=== PATIENT | female | born 2000 | race Caucasian/White ===

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

== ENCOUNTER → 2019-01-12 17:54 | Outpatient (CLI) | payer BC, MEDICAID, SELFPAY ==
[2019-01-12 09:18] VITALS: BMI 25.7
== END ==
PROVIDERS: Family Provider Family Medicine; PCP Family Medicine; Referring Provider Obstetrics & Gynecology; Visit Provider Obstetrics & Gynecology
DX: Z34.93 Encounter for supervision of normal pregnancy, unspecified, third trimester (principal)
CPT/HCPCS: 87081

== ENCOUNTER 2019-02-04 11:45 | Inpatient (IN) | payer BC, MEDICAID, SELFPAY ==
[2019-01-31 09:21] VITALS: BMI 25.7
[2019-02-04 10:03] VITALS: BMI 28.6
[2019-02-04] MEDS: Lactated Ringers 1,000 ML 50 ML IV ×3 (12:15→20:40)
[2019-02-04 12:40] LABS: Absolute Lymphocyte Count 1.56 X10^3/ul (0.83-4.51); Absolute Neutrophil Count 8.4 X10^3/uL (2.0-7.7); Basophil# 0.01 X10^3/uL; Basophil% 0.1 % (0-1); Eosinophil# 0.04 X10^3/uL; Eosinophils% 0.4 % (0-5); Hematocrit 37.2 % (37-47); Lymphocyte # 1.56 X10^3/ul (4.0); Lymphocyte % 14.3 % (19-41); Mean Corp Hgb Conc 34.9 g/gl (32-36); Mean Corpuscular Hgb 30.5 pg (27.0-32.0); Mean Corpuscular Volume 87.3 fL (81-99); Mean Platelet Vol. 10.1 fl (6.2-12.0); Monocyte# 0.85 X10^3/uL; Monocyte% 7.8 % (0-10); Neutrophil % 76.9 % (47-70); POSITIVE COUNT NO; POSITIVE DIFFERENTIAL NO; POSITIVE MORPHOLOGY NO; Platelet Count 218 K/mm3 (150-450); RBC Distribution Width CV 13.2 % (11.6-14.6); RBC Distribution Width SD 42.2 fl (35.1-43.9); Red Blood Count 4.26 M/mm3 (4.2-5.4); White Blood Count 10.9 K/mm3 (4.4-11.0)
[2019-02-04] MEDS: fentaNYL-bupivacaine (epidural) 100 ML BAG EPIDURAL ×2 (15:10→20:48)
--- NOTE | 2019-02-04 15:17 | PCM.HP.OB ---
- Problem List (1) Active labor at term Status: Acute (2) Anemia affecting Status: Acute Qualifiers: Comment: iron - resolved (3) Pyelonephritis affecting Status: Acute Qualifiers: Comment: keflex, prophylaxis until delivery (4) Status: Acute Qualifiers: Comment: nl sequential screen. carrier screening declined. anatomy scan reviewed. pyelectasis resolved (5) Supervision of normal first Status: Acute Qualifiers: Comment: PRR SILVANA 02/02/19 girl Bernardo Clay History Date of Admission: 10/08/18 Final ISLVANA: 02/02/19 Gestational age: 40 Weeks and 2 Days History of this : This is a 18 year-old, at 40 weeks gestational age presents IAL 4 cm dilated. She has had a complicated by pyelonephritis and has been on Keflex prophylaxis during the . She denies any vaginal bleeding or loss of fluid and admits good movement. She has had regular contractions for the last couple of hours. Allergies No Known Allergies Allergy (Verified 01/31/19 08:56) Home Medications: Home Medications vitamin,calcium,btnsfprj-ncsx-grweq acid tablet 1 tab PO DAILY 07/05/18 Cephalexin [Keflex] 250 mg PO Q12 02/04/19 Ferrous Sulfate [Iron] 325 mg PO DAILY 02/04/19 Smoking Status: Never smoker Alcohol: None Number of Fetus(es): 1 Heart Tracin moderate variability reactive no decelerations category 1 tracing [place]: Every 3 to 5 minutes History Past Pregnancies: Past Pregnancies Delivery Date Name GA/Weeks Outcome Route Weight Infant Gender Labor Length Anesthesia Delivery Location Provider FOB Labs: Mom[facility] Labs & Results 02/04/19 02/04/19 12:15 12:15 WBC 10.9 RBC 4.26 Hgb 13.0 Hct 37.2 MCV 87.3 MCH 30.5 MCHC 34.9 RDW 13.2 RDW Differential 42.2 Plt Count 218 MPV 10.1 Immature Gran % (Auto) 0.500 Neut % (Auto) 76.9 H Lymph % (Auto) 14.3 L [place] % (Auto) 7.8 Eos % (Auto) 0.4 Baso % (Auto) 0.1 Absolute Neuts (auto) 8.4 H Absolute Lymphs (auto) 1.56 Total Counted Not Reportable Blood Type O POSITIVE Antibody Screen NEGATIVE Course Did the patient receive Yes care? Labs Blood Type: O RH: POSITIVE RPR/VDRL/Syphilis Nonreactive Rubella status Immune HbSAg Negative Date Done: 07/05/18 Chlamydia Negative Gonorrhea Negative HIV/AIDS Non-Reactive Group B Strep: Negative Current Obstetrical History Gestational Diabetes No Incompetent Cervix No Infertility No IUGR No Macrosomia No Hypertension/Pre-eclampsia No Placenta Previa/Abruption No PTL/PROM No Uterine anomaly No Oligohydramnios No Polyhydramnios No Multiple gestation No Past Medical History Asthma No Diabetes No Hypertension No Heart disease No Mitral valve prolapse No Neurologic/Seizure disorder/ No Migraines Kidney disease No Liver disease No Varicosities No Clotting disorders/Hx of DVT No Thyroid Dysfunction No Other medical diseases No Psychiatric disorders No Major trauma No Abnormal PAP smear No Sleep apnea No Mammogram in the last 2 years No Medications Taken During Dose/Freq.: [antiemetic] 4mg q6hrs PRN Reason for taking medication [ nausea in first trimester antiemetic] Social History Marital Status: SINGLE Alleged father Obed Hx Smoking No Smoking Status Never smoker Expected Infant Delivery Method: Spontaneous Vaginal Review of Systems Constitutional: Denies: Fever, Malaise Eyes: Denies: Blurred vision, Vision Change HEENT: Denies: Head Aches, Visual Changes Cardiovascular: Denies: Chest Pain, Palpitations Respiratory: Denies: Cough, Shortness of Breath, Wheezing Gastrointestinal: Denies: Abdominal Pain, Diarrhea, Nausea, Vomiting Genitourinary: Denies: Dysuria, Hematuria Musculoskeletal: Denies: Joint Pain, Muscle pain Skin: Denies: Lesions, Rash Neurological: Denies: Blurred vision, Focal weakness, Headaches Psychiatric: Denies: Anxiety, Depression Endocrine: Denies: Heat/ Cold Intolerance Hematologic/ Lymphatic: Denies: Easy Bruising, Easy Bleeding Physical Exam General: Alert, Cooperative, No apparent distress HEENT: Atraumatic, Normocephalic. Negative for: Thyromegaly, Lymphadenopathy Cardiovascular: Regular rate Lungs: Normal air movement Abdomen: Soft, Non Tender, Gravid Neurological: Deep Tendon Reflexes 2+/4 and Symmetrical, Neuro grossly intact. 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 Negative for: Vulvar lesions Estimated gestational size: Appropriate for gestational size Presentation: Cephalic Cervix Dilation (cm): 4 Station: -1 Effacement (%): 90 Assessment/Plan All Active Problems (Last Reviewed 01/31/19 @ 08:56 by Fide Jones) Active labor at term (Acute) Anemia affecting (Acute) Pyelonephritis affecting (Acute) (Acute) Supervision of normal first (Acute) Abnormal finding on screen (Resolved) Pyelectasis (Resolved) Pyelectasis of fetus on ultrasound (Resolved) This is a 18 year-old, at 40 weeks gestational age presents IAL Patient presents IAL, plan expectant management for , pitocin/AROM PRN if needed. Pain management: Plans epidural. GBS negative. Management of any complications: None I have reviewed the [facility] and made any clinically relevant updates.
--- NOTE | 2019-02-04 15:20 | HP.PCM_ITS ---
- Problem List (1) Active labor at term Status: Acute (2) Anemia affecting Status: Acute Qualifiers: Comment: iron - resolved (3) Pyelonephritis affecting Status: Acute Qualifiers: Comment: keflex, prophylaxis until delivery (4) Status: Acute Qualifiers: Comment: nl sequential screen. carrier screening declined. anatomy scan reviewed. pyelectasis resolved (5) Supervision of normal first Status: Acute Qualifiers: Comment: PRR SILVANA 02/02/19 girl Bernardo Clay History Date of Admission: 10/08/18 Final SILVANA: 02/02/19 Gestational age: 40 Weeks and 2 Days History of this : This is a 18 year-old, at 40 weeks gestational age presents IAL 4 cm dilated. She has had a complicated by pyelonephritis and has been on Keflex prophylaxis during the . She denies any vaginal bleeding or loss of fluid and admits good movement. She has had regular contractions for the last couple of hours. Allergies No Known Allergies Allergy (Verified 01/31/19 08:56) Home Medications: Home Medications vitamin,calcium,bjssuqfv-rzzd-rvcep acid tablet 1 tab PO DAILY 07/05/18 Cephalexin [Keflex] 250 mg PO Q12 02/04/19 Ferrous Sulfate [Iron] 325 mg PO DAILY 02/04/19 Smoking Status: Never smoker Alcohol: None Number of Fetus(es): 1 Heart Tracin moderate variability reactive no decelerations category 1 tracing [place]: Every 3 to 5 minutes History Past Pregnancies: Past Pregnancies Delivery Date Name GA/Weeks Outcome Route Weight Infant Gender Labor Length Anesthesia Delivery Location Provider FOB Labs: Mom[facility] Labs & Results 02/04/19 02/04/19 12:15 12:15 WBC 10.9 RBC 4.26 Hgb 13.0 Hct 37.2 MCV 87.3 MCH 30.5 MCHC 34.9 RDW 13.2 RDW Differential 42.2 Plt Count 218 MPV 10.1 Immature Gran % (Auto) 0.500 Neut % (Auto) 76.9 H Lymph % (Auto) 14.3 L [place] % (Auto) 7.8 Eos % (Auto) 0.4 Baso % (Auto) 0.1 Absolute Neuts (auto) 8.4 H Absolute Lymphs (auto) 1.56 Total Counted Not Reportable Blood Type O POSITIVE Antibody Screen NEGATIVE Course Did the patient receive Yes care? Labs Blood Type: O RH: POSITIVE RPR/VDRL/Syphilis Nonreactive Rubella status Immune HbSAg Negative Date Done: 07/05/18 Chlamydia Negative Gonorrhea Negative HIV/AIDS Non-Reactive Group B Strep: Negative Current Obstetrical History Gestational Diabetes No Incompetent Cervix No Infertility No IUGR No Macrosomia No Hypertension/Pre-eclampsia No Placenta Previa/Abruption No PTL/PROM No Uterine anomaly No Oligohydramnios No Polyhydramnios No Multiple gestation No Past Medical History Asthma No Diabetes No Hypertension No Heart disease No Mitral valve prolapse No Neurologic/Seizure disorder/ No Migraines Kidney disease No Liver disease No Varicosities No Clotting disorders/Hx of DVT No Thyroid Dysfunction No Other medical diseases No Psychiatric disorders No Major trauma No Abnormal PAP smear No Sleep apnea No Mammogram in the last 2 years No Medications Taken During Dose/Freq.: [antiemetic] 4mg q6hrs PRN Reason for taking medication [ nausea in first trimester antiemetic] Social History Marital Status: SINGLE Alleged father Obed Hx Smoking No Smoking Status Never smoker Expected Infant Delivery Method: Spontaneous Vaginal Review of Systems Constitutional: Denies: Fever, Malaise Eyes: Denies: Blurred vision, Vision Change HEENT: Denies: Head Aches, Visual Changes Cardiovascular: Denies: Chest Pain, Palpitations Respiratory: Denies: Cough, Shortness of Breath, Wheezing Gastrointestinal: Denies: Abdominal Pain, Diarrhea, Nausea, Vomiting Genitourinary: Denies: Dysuria, Hematuria Musculoskeletal: Denies: Joint Pain, Muscle pain Skin: Denies: Lesions, Rash Neurological: Denies: Blurred vision, Focal weakness, Headaches Psychiatric: Denies: Anxiety, Depression Endocrine: Denies: Heat/ Cold Intolerance Hematologic/ Lymphatic: Denies: Easy Bruising, Easy Bleeding Physical Exam General: Alert, Cooperative, No apparent distress HEENT: Atraumatic, Normocephalic. Negative for: Thyromegaly, Lymphadenopathy Cardiovascular: Regular rate Lungs: Normal air movement Abdomen: Soft, Non Tender, Gravid Neurological: Deep Tendon Reflexes 2+/4 and Symmetrical, Neuro grossly intact. 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 Negative for: Vulvar lesions Estimated gestational size: Appropriate for gestational size Presentation: Cephalic Cervix Dilation (cm): 4 Station: -1 Effacement (%): 90 Assessment/Plan All Active Problems (Last Reviewed 01/31/19 @ 08:56 by Fide Jones) Active labor at term (Acute) Anemia affecting (Acute) Pyelonephritis affecting (Acute) (Acute) Supervision of normal first (Acute) Abnormal finding on screen (Resolved) Pyelectasis (Resolved) Pyelectasis of fetus on ultrasound (Resolved) This is a 18 year-old, at 40 weeks gestational age presents IAL Patient presents IAL, plan expectant management for , pitocin/AROM PRN if needed. Pain management: Plans epidural. GBS negative. Management of any complications: None I have reviewed the [facility] and made any clinically relevant updates.
[2019-02-04] MEDS: Oxytocin 30 units/NS 500 ml 30 UNITS/500 ML IV.SOLN IV (23:15)
[2019-02-05] VITALS (9 sets, daily range): BP systolic 103–117; BP diastolic 55–79; PULSE 112–140; RESP 16–18; TEMP 36.2–37.2; O2SAT 97–99
[2019-02-05] MEDS: Lactated Ringers 1,000 ML 50 ML IV (01:37)
[2019-02-05] MEDS: Oxytocin 30 units/NS 500 ml 30 UNITS/500 ML IV.SOLN 334 UNITS IV (02:11)
[2019-02-05] MEDS: Oxytocin 30 units/NS 500 ml 30 UNITS/500 ML IV.SOLN 167 UNITS IV (02:41)
--- NOTE | 2019-02-05 02:52 | PCM.OPRPT ---
Problem List (1) Active labor at term Status: Acute (2) Anemia affecting Status: Acute Qualifiers: Comment: iron - resolved (3) Pyelonephritis affecting Status: Acute Qualifiers: Comment: keflex, prophylaxis until delivery (4) Status: Acute Qualifiers: Comment: nl sequential screen. carrier screening declined. anatomy scan reviewed. pyelectasis resolved (5) Supervision of normal first Status: Acute Qualifiers: Comment: PRR SILVANA 02/02/19 girl Bernardo BF Obed Vaginal Delivery Maternal Presentation: Active Labor 18 yo P0 @ 40w2d presents in active labor Method of Induction: Pitocin Amniotic Membrane Rupture Type: Spontaneous at home Amniotic Fluid Description: Clear Final SILVANA: 02/02/19 Gestational age: 40 Weeks and 3 Days Date of Procedure: 02/05/19 Pre-Operative Diagnosis: ial Post-Operative Diagnosis: same Surgery/ Procedure Performed: Spontaneous Vaginal Delivery Type of Anesthesia: Epidural Description of Procedure: Patient began pushing and delivered the head in the [BREEZY] presentation. The head was delivered atraumatically . The anterior and posterior shoulders delivered without complication followed by the rest of the and the infant was placed on the maternal abdomen. Delayed cord clamping was employed for approximately 60 seconds. Cord was clamped and cut and gentle traction was applied to the cord and the placenta delivered spontaneously immediately following however it was noted that remaining part of the placenta and difficulty releasing retained products were suspected. A bedside curettage was performed with a banjo curette and manual exploration was performed. Additional membrane and placental tissue was removed and bedside ultrasound was performed to confirm complete removal of products.. The perineum and vagina were inspected and [noted to have no laceration]. EBL was 500 cc. Patient had a hypotensive episode post delivery that recovered with a normal blood pressure and heart rate at 85 afterwards but a stat CBC was sent.. Patient and infant tolerated delivery well. Presentation: BREEZY Placental Delivery Description: Spontaneous Placenta Disposition: [facility] Cord Vessel Description: 3 Vessels Cord Entanglement: None Estimated Blood Loss: 500 A gender: Female Episiotomy Description: None Laceration: None Medications given after delivery: IV Pitocin Complications: - - retained placenta
[2019-02-05 03:27] LABS: Hematocrit 33.1 % (37-47); Hemoglobin 11.3 g/dl (12.0-15.0); Mean Corp Hgb Conc 34.1 g/gl (32-36); Mean Corpuscular Volume 87.8 fL (81-99); Mean Platelet Vol. 10.3 fl (6.2-12.0); Platelet Count 177 K/mm3 (150-450); RBC Distribution Width CV 13.1 % (11.6-14.6); RBC Distribution Width SD 42.1 fl (35.1-43.9); Red Blood Count 3.77 M/mm3 (4.2-5.4); White Blood Count 13.9 K/mm3 (4.4-11.0)
[2019-02-05 03:29] LABS: Scan Indicated on CBC? Y/N NO
[2019-02-05] MEDS: Cefazolin 2 GM in 0.9% Normal Saline 100 ML IV (04:05)
[2019-02-05] MEDS: Lactated Ringers 1,000 ML 999 ML IV (17:10)
[2019-02-05 17:26] LABS: Absolute Lymphocyte Count 1.53 X10^3/ul (0.83-4.51); Absolute Neutrophil Count 19.1 X10^3/uL (2.0-7.7); Basophil# 0.01 X10^3/uL; Eosinophil# 0.01 X10^3/uL; Hemoglobin 9.7 g/dl (12.0-15.0); Lymphocyte # 1.53 X10^3/ul (4.0); Lymphocyte % 6.9 % (19-41); Mean Corp Hgb Conc 34.6 g/gl (32-36); Mean Corpuscular Hgb 30.2 pg (27.0-32.0); Mean Corpuscular Volume 87.2 fL (81-99); Mean Platelet Vol. 9.8 fl (6.2-12.0); Monocyte# 1.67 X10^3/uL; Monocyte% 7.5 % (0-10); Neutrophil # 19.05 X10^3/uL (2.7-7.7); Neutrophil % 85.3 % (47-70); Platelet Count 163 K/mm3 (150-450); RBC Distribution Width CV 13.1 % (11.6-14.6); RBC Distribution Width SD 42.2 fl (35.1-43.9); Red Blood Count 3.21 M/mm3 (4.2-5.4); White Blood Count 22.3 K/mm3 (4.4-11.0)
[2019-02-05 17:31] LABS: Differential Indicated SCAN CRITERIA MET; POSITIVE COUNT NO; POSITIVE DIFFERENTIAL YES; POSITIVE MORPHOLOGY NO
[2019-02-05 18:02] LABS: Platelet Estimate ADEQUATE (ADEQ); Red Cell Morphology NORM C+C NORMAL (NORM C&C)
--- NOTE | 2019-02-05 18:16 | EKG12_ITS ---
Test Reason : Blood Pressure : / mmHG Vent. Rate : 123 BPM Atrial Rate : 123 BPM P-R Int : 154 ms QRS Dur : 072 ms QT Int : 290 ms P-R-T Axes : 039 -39 047 degrees QTc Int : 415 ms Sinus tachycardia Left axis deviation Low Voltage QRS Septal infarct , age undetermined Abnormal ECG Confirmed by CARLOS MOYER, SARAHY ([id number]), purchase request editor NATHANIEL AGUIRRE ([id number]) on 02/07/2019 11:44:29 AM Referred By: Confirmed By:SARAHY GONZALEZ MD
[2019-02-05] MEDS: Lactated Ringers 500 ML 999 ML IV (18:21)
[2019-02-05 19:45] LABS: Hemoglobin 8.8 g/dl (12.0-15.0)
[2019-02-06 00:45] VITALS: BP 101/54; PULSE 106; RESP 18; TEMP 37; O2SAT 98
[2019-02-06 03:49] VITALS: BP 111/70; PULSE 109; RESP 18; TEMP 36.4; O2SAT 98
[2019-02-06 06:32] LABS: Absolute Lymphocyte Count 2.25 X10^3/ul (0.83-4.51); Absolute Neutrophil Count 14.3 X10^3/uL (2.0-7.7); Basophil# 0.01 X10^3/uL; Basophil% 0.1 % (0-1); Eosinophil# 0.09 X10^3/uL; Eosinophils% 0.5 % (0-5); Hematocrit 24.7 % (37-47); Hemoglobin 8.4 g/dl (12.0-15.0); Lymphocyte # 2.25 X10^3/ul (4.0); Lymphocyte % 12.4 % (19-41); Mean Corpuscular Volume 88.2 fL (81-99); Mean Platelet Vol. 9.9 fl (6.2-12.0); Monocyte# 1.38 X10^3/uL; Monocyte% 7.6 % (0-10); Neutrophil # 14.31 X10^3/uL (2.7-7.7); Platelet Count 158 K/mm3 (150-450); RBC Distribution Width CV 13.3 % (11.6-14.6); RBC Distribution Width SD 43.1 fl (35.1-43.9); White Blood Count 18.1 K/mm3 (4.4-11.0)
[2019-02-06 06:37] LABS: POSITIVE COUNT NO; POSITIVE DIFFERENTIAL NO; POSITIVE MORPHOLOGY NO
--- NOTE | 2019-02-06 07:36 | PN.OBGYN_ITS ---
Patient Problems: Active and Suspected Problems (Last Reviewed 01/31/19 @ 08:56 by Fide Jones) Active labor at term (Acute) Subjective: doing well no complaints pain controlled no CP SOB-note mild tachycardia, will monitor this am and discuss with Dr. Amado. No N V ambulating well tolerating po lochia moderate, going well - Physical Exam General: Alert, Oriented x3 Cardiovascular: Tachycardic - 0700 100bpm Abdomen: Soft, Non Tender, - - FF below U Vital Signs Temp Pulse Resp BP Pulse Ox 97.6 F L 109 H 18 111/70 98 02/06/19 03:49 02/06/19 03:49 02/06/19 03:49 02/06/19 03:49 02/06/19 03:49 Oxygen Delivery Method Room Air Weight: 161 lb 9.581 oz Body Mass Index (BMI) 28.6 Intake and Output for Last 24 Hours 02/04/19 02/05/19 02/06/19 23:59 23:59 23:59 Intake Total 3253 / 3253 Output Total 1600 / 1600 1200 / 1200 Balance 1653 / 1653 -1200 / -1200 Laboratory Tests Past 24 Hrs 02/05/19 02/05/19 02/06/19 17:08 19:30 06:10 WBC 22.3 H 18.1 H RBC 3.21 L 2.80 L Hgb 9.7 L 8.8 L 8.4 L Hct 28.0 L 24.7 L MCV 87.2 88.2 MCH 30.2 30.0 MCHC 34.6 34.0 RDW 13.1 13.3 RDW Differential 42.2 43.1 Plt Count 163 158 MPV 9.8 9.9 Immature Gran % (Auto) 0.300 0.400 Neut % (Auto) 85.3 H 79.0 H Lymph % (Auto) 6.9 L 12.4 L Humphreys % (Auto) 7.5 7.6 Eos % (Auto) 0.0 0.5 Baso % (Auto) 0.0 0.1 Absolute Neuts (auto) 19.1 H 14.3 H Absolute Lymphs (auto) 1.53 2.25 Total Counted Not Reportable Not Reportable Differential Comment Diff Path Review May foll Platelet Estimate ADEQUATE RBC Morphology NORM C+C Medical Necessity - Tobacco Use Smoking Status: Never smoker Assessment/Plan All Active Problems (Last Reviewed 01/31/19 @ 08:56 by Fide Jones) Active labor at term (Acute) Anemia affecting (Acute) Pyelonephritis affecting (Acute) (Acute) Supervision of normal first (Acute) Abnormal finding on screen (Resolved) Pyelectasis (Resolved) Pyelectasis of fetus on ultrasound (Resolved) s/p PPD # 1 1. routine post delivery care 2. breast feeding- support given 3. rh positive 4. rubella immune 5. If tachycardia resolves today will discharge home this pm 6. Consult Dr. Amado re: tachycardia.
[2019-02-06 08:45] VITALS: BP 105/53; PULSE 94; RESP 16; TEMP 36.9; O2SAT 97
[2019-02-06 11:28] LABS: Pathologist Review Reviewed
--- NOTE | 2019-02-06 13:58 | CASEMGMT ---
Social Work Assessment Labor and Delivery Unit Date of Referral: 02/06/2019 Time of Referral: 1225 Referred By: Verbal notification by Chante Zaidi RN; Dr. Amado. Date of Intervention: 02/06/2019 Time of Intervention: 1340 Reason for Referral: 18 year old mother, resources. History obtained from: Mother of baby (MOB) Danii Morgan, medical records, and father of baby (FOB) Obed Vasquez also present for part of conversation. Household composition: MOB and FOB have been living with FOB's sister, sister's boyfriend, and their son. MOB and FOB report home situation is safe and adequate. Patient's parent/guardian status: MOB is 18, has been in a 5 year relationship with FOB. Privately MOB denies any safety concerns or history of violence with FOB. baby girl, Bernardo Vasquez, is the first child for both. Medical History: MOB is G1, P0 to 1 after delivering Bernardo. care started at 9 weeks gestation. Baby born at 40 weeks and weighed 8 pounds 1 ounce at . Apgars 8 and 9 at 1 and 5 minutes of life. Educational Status: MOB just graduated with an Associates degree in [employer] and [employer] from [employer]. No issues with reading, writing, or learning comprehension. Financial Status: MOB works at [employer] but will be looking for a new job in business arena. FOB works at [employer] in [facility]. Supplies: Report to have needed baby supplies including a safe sleep space, car seat, clothes, diapers, wipes, and breast pump. Childcare/Caregiver(s): MOB and then FOB to help. Transportation: No issues. Programs/Agencies Involved: Medicaid through S. MOB and FOB educated to WIC, [facility] and [employer]. Behavioral Health Issues: Mental Health History: MOB denies any personal history of emotional health issues. Substance Use History: MOB denies any past or present issues with substances. Does not smoke tobacco. Family History: None reported or discussed. Drug Screens: none noted in care record or at time of delivery. Family/Social Stressors: [place] but MOB reports both parents are excited for the baby. No other stressors identified at this time. Support Systems: MOB reports FOB, FOB's parents, grandparents, MOB's parents and grandparents are all local and supportive. MOB reports that FOB's sister has an also, and that both women have been helpful to each other throughout their pregnancies. Depression/Shaken Baby/Safe Sleeping : Educated to shaken baby preventions, safe sleeping, and mood and anxiety disorders/risk factors, and importance of seeking out help and support should symptoms arise. ASSESSMENT: Met with MOB and FOB together and then alone with MOB. Both MOB and FOB pleasant and engaging in conversation. MOB held good eye contact. Affect constricted, though smiled at appropriate times, and affect brightened when talking bout the baby. MOB reports to have needed supplies for baby, to have adequate support and FOB is taking the remainder of the week off of work to help out. MOB denies any mood or anxiety issues currently or in the . MOB reports understanding of importance to talk with health care provider should symptoms arise. MOB and FOB deny any needs or concerns with home going. MOB accepting of information on [facility] but did not want a referral. PLAN: MOB and baby to home. [facility] resource packet provided, depression packet with online resources for support, and [facility] information given. No other services requested or indicated. -DAVID Goodman, RESEARCH PROGRAM COORDINATOR
[2019-02-06 14:20] VITALS: BP 111/71; PULSE 104; RESP 16; TEMP 36.9; O2SAT 99
[2019-02-06 15:16] VITALS: PULSE 96
--- NOTE | 2019-02-06 15:37 | DCINST_ITS ---
Additional Instructions: If you experience any of the following, contact your healthcare provider. * Bleeding that soaks a pad every hour for 2 hours * Fever 100.4 or higher * Unrelieved incision or abdominal pain * Swelling, redness, discharge or bleeding from your incision or episiotomy site * Your incision begins to separate * Problems urinating (including inability to urinate or burning while urinating). * Visual changes * Severe headache * Flu-like symptoms * Pain or redness in one of both of your breasts * Pain, warmth, tenderness or swelling in your legs, especially the calf area * Frequent nausea and vomiting * Symptoms of depression or anxiety If you experience any of the following, call 911 or go to the nearest Emergency Room. * Chest pain * Problems breathing * Seizure activity * Partial or complete paralysis of a body part, slurred speech, weakness or drooping of the face, or a sudden inability to walk or hold your balance Allergies/Adverse Reactions: Allergies No Known Allergies Allergy (Verified 01/31/19 08:56) Medications to take at Discharge vitamin,calcium,exokqmem-bcup-nvvmq acid tablet 1 tab PO DAILY 07/05/18 Cephalexin [Keflex] 250 mg PO Q12 02/04/19 Ferrous Sulfate [Iron] 325 mg PO DAILY 02/04/19 Primary Care Physician: Wilmer Redmond MD [Primary Care Provider] - Test Results: Test results from this visit will be discussed in further detail at your follow- up appointment, if applicable.
--- NOTE | 2019-02-06 15:37 | PCM.DCVAG ---
Additional Instructions: If you experience any of the following, contact your healthcare provider. Bleeding that soaks a pad every hour for 2 hours Fever 100.4 or higher Unrelieved incision or abdominal pain Swelling, redness, discharge or bleeding from your incision or episiotomy site Your incision begins to separate Problems urinating (including inability to urinate or burning while urinating). Visual changes Severe headache Flu-like symptoms Pain or redness in one of both of your breasts Pain, warmth, tenderness or swelling in your legs, especially the calf area Frequent nausea and vomiting Symptoms of depression or anxiety If you experience any of the following, call 911 or go to the nearest Emergency Room. Chest pain Problems breathing Seizure activity Partial or complete paralysis of a body part, slurred speech, weakness or drooping of the face, or a sudden inability to walk or hold your balance Allergies/Adverse Reactions: Allergies No Known Allergies Allergy (Verified 01/31/19 08:56) Medications to take at Discharge vitamin,calcium,sjdhzhir-ovmf-llbub acid tablet 1 tab PO DAILY 07/05/18 Cephalexin [Keflex] 250 mg PO Q12 02/04/19 Ferrous Sulfate [Iron] 325 mg PO DAILY 02/04/19 Primary Care Physician: Wilmer Redmond MD [Primary Care Provider] - Test Results: Test results from this visit will be discussed in further detail at your follow-up appointment, if applicable.
--- NOTE | 2019-02-12 17:11 | NURSING ---
Follow up phone made, Mother discontinued due to bleeding nipples and property technician recommended formula until they heal but Mom decided to stay with formula. Crystal MARQUES
== END 2019-02-06 16:10 | disposition home or self-care (01) | DRG 806 ==
LOC: WP 16:41 → WPOUT 02-05 11:00
PROVIDERS: Admitting Provider Obstetrics & Gynecology; Family Provider Family Medicine; PCP Family Medicine; Visit Provider Obstetrics & Gynecology
DX: O99.02 Anemia complicating childbirth (principal); O23.03 Infections of kidney in pregnancy, third trimester; Z37.0 Single live birth; D64.9 Anemia, unspecified; Z3A.40 40 weeks gestation of pregnancy; O42.02 Full-term premature rupture of membranes, onset of labor within 24 hours of rupture; O73.0 Retained placenta without hemorrhage; O99.89 Other specified diseases and conditions complicating pregnancy, childbirth and the puerperium; R00.0 Tachycardia, unspecified
CPT/HCPCS: 59025; 59050; 85018; 85025; 85027; 86850; 86900; 93005; 99218; J7120; G0378

== ENCOUNTER 2019-05-07 19:46 | Emergency (ER) | payer BC, MEDICAID, SELFPAY ==
[2019-03-26 11:05] VITALS: BMI 28.6
[2019-05-07 19:47] VITALS: BP 135/80; PULSE 73; RESP 16; TEMP 36.7; O2SAT 100; BMI 22.4
--- NOTE | 2019-05-07 19:56 | EKG12_ITS ---
Test Reason : Blood Pressure : / mmHG Vent. Rate : 066 BPM Atrial Rate : 066 BPM P-R Int : 144 ms QRS Dur : 084 ms QT Int : 404 ms P-R-T Axes : 011 -39 005 degrees QTc Int : 423 ms Normal sinus rhythm Left axis deviation Abnormal ECG Confirmed by BETH MOYER, DIANE ([id number]), order editor NATHANIEL AGUIRRE ([id number]) on 05/09/2019 12:49:33 PM Referred By: Confirmed By:DIANE CAMPOS MD
--- NOTE | 2019-05-07 20:50 | RAD_ITS ---
STUDY: X-RAY CHEST REASON FOR EXAM: Female, 18 years old. Palpitation TECHNIQUE: AP COMPARISON: None. FINDINGS: The lungs are clear and expanded. There is no demonstrated pleural abnormality. Normal size heart. Normal mediastinum and lexi. Normal visualized pulmonary arteries. Normal visualized aortic arch and descending thoracic aorta. Normal visualized thoracic spine. Normal visualized ribs, clavicles, and shoulders. There is no demonstrated abnormality of the visualized soft tissue structures of the upper abdomen. RAD/Chest 1 View (Portable) IMPRESSION: Normal x-ray examination of the chest. Electronically Signed: Joe Armendariz MD at 21:17 EDT , Service support ,
[2019-05-07] MEDS: 0.9% Normal Saline 1,000 ML 1000 ML IV (21:10)
[2019-05-07 21:27] LABS: Absolute Neutrophil Count 3.8 X10^3/uL (2.0-7.7); Basophil# 0.07 X10^3/uL; Basophil% 1.1 % (0-1); Eosinophil# 0.14 X10^3/uL; Eosinophils% 2.3 % (0-5); Hematocrit 36.8 % (37-47); Hemoglobin 11.8 g/dL (12.0-15.0); Lymphocyte % 24.1 % (19-41); Mean Corp Hgb Conc 32.1 g/dL (32-36); Mean Corpuscular Hgb 25.5 pg (27.0-32.0); Mean Corpuscular Volume 79.7 fL (81-99); Mean Platelet Vol. 10.4 fl (6.2-12.0); Monocyte# 0.67 X10^3/uL; Monocyte% 10.8 % (0-10); NRBC Flagged by Analyzer 0 % (0-5); Neutrophil # 3.83 X10^3/uL (2.7-7.7); Neutrophil % 61.5 % (47-70); Platelet Count 281 K/mm3 (150-450); RBC Distribution Width CV 14.9 % (11.6-14.6); RBC Distribution Width SD 42.9 fl (35.1-43.9); Red Blood Count 4.62 M/mm3 (4.2-5.4); White Blood Count 6.2 K/mm3 (4.4-11.0)
[2019-05-07 21:28] LABS: Internal QC Validated? YES +Cl - CLEAR BKGD; Pregnancy, Serum, hCG Quali. NEGATIVE Negative
[2019-05-07 21:43] LABS: ALB/GLOB Ratio 1.2 RATIO (0.9-2.4); AST(SGOT) 12 U/L (15-37); Alanine Aminotransfer ALT/SGPT 19 U/L (13-56); Albumin, Serum 3.9 g/dL (3.2-5.0); Alkaline Phosphatase 61 U/L (45-117); Anion Gap 9 (5-15); BUN 11 mg/dL (7-18); BUN/Creat Ratio 13.7 RATIO (10-20); Chloride 110 mmol/L (98-107); EST Glomerular Filtration Rate 97 mL/min (>60); Est Glom Filt Rate - Afr Amer 117 mL/min (>60); Estimated Creatinine Clearance 93.56 ml/min; Globulin 3.3 g/dL (2.2-4.2); Glucose 92 mg/dL (74-106); Potassium 3.6 mmol/L (3.5-5.1); Protein, Total 7.2 g/dL (6.4-8.2); Sodium Level 141 mmol/L (136-145); Thyroid Stim Hormone (TSH) 0.78 uIU/mL (0.358-3.74)
--- NOTE | 2019-05-07 21:52 | ED.DCSUM_ITS ---
- ER Visit Summary Date of Service: 05/07/19 Chief Complaint: Palpitations History of Present Illness: The patient is a [address] Nevarez off. She reports she has palpitations that began yesterday. There are intermittent episodes that last minutes of time. However she is having them every couple minutes. She describes these as a rate or fast heartbeats. She denies any associated chest pain or shortness of breath. States that she typically does not drink caffeine. She did have a Mountain Dew yesterday. Patient does reports that she has had chills and cold sweats. She denies any fever. No sore throat or cough. No abdominal pain, vomiting, or GI diarrhea. No dysuria frequency. She is actually on her menstrual period now. Physical Examination: Vitals: Stable. Afebrile. General: Well-nourished and well-developed. Head: Normocephalic atraumatic. Neck: Supple, no lymphadenopathy. No JVD. Nontender. Cardiovascular: Regular rate and rhythm. No murmurs. Respiratory: No respiratory distress. Clear to auscultation bilaterally. Abdominal: Soft, nontender, nondistended, normal bowel sounds. No guarding, rebound, or peritoneal signs. Back: Nontender. Extremities: Nontender, no edema. Skin: Normal color, no rash. Neurologic: Alert and oriented ?3. Cranial nerves II through XII are intact. Normal strength and sensation. Psych: Normal affect. Test Results: EKG is sinus at 66 and unchanged from January. Troponin is negative. test negative. TSH is normal. LFTs show an AST of 12. Chem-7 shows a chloride 110. CBC shows an H&H of 11.8 and 36.8. Monocytes of 11. Clinical Impression(s) from Imaging Studies Chest X-Ray 05/07/19 20:50 IMPRESSION: Normal x-ray examination of the chest. Electronically Signed: Joe Armendariz MD at 21:17 EDT , Service support , Emergency Department Course and Treatment: Patient was given a liter of normal saline. She was sinus in the 60s without ectopy while here. Treatment Plan: Patient be discharged instructions follow-up with primary care physician in 3 to 5 days for another exam. Return to the emergency department for any worsening symptoms. Disposition: To home in improved and stable condition. Impression: 1. Palpitations. This note was generated with Mesol[employer] dictation software. It may contain incorrect words, spelling, and punctuation that were not noted in review of the chart prior to signing ED Disposition - Plan for ED Patient: Disposition: Home or Assisted Living Instructions: Palpitations Referrals: Wilmer Redmond MD [Primary Care Provider] - 3-5 Days
[2019-05-07 22:05] VITALS: BP 117/89; PULSE 55; RESP 16; O2SAT 98
== END 2019-05-07 22:07 | disposition home or self-care (01) ==
LOC: ED 20:59
PROVIDERS: Emergency Provider Emergency Medicine; Family Provider Family Medicine; PCP Family Medicine
DX: R00.2 Palpitations (principal)
CPT/HCPCS: 71045; 80053; 84443; 84484; 84703; 85025; 93005; 96360; 99285; J7030; A4216

== ENCOUNTER 2019-07-20 07:58 | Emergency (ER) | payer BC, MEDICAID, SELFPAY ==
[2019-07-06 13:53] VITALS: BMI 22.4
[2019-07-20 07:59] VITALS: BP 121/85; PULSE 116; RESP 16; TEMP 36.6; O2SAT 100; BMI 22.1
--- NOTE | 2019-07-20 08:18 | EKG12_ITS ---
Test Reason : COMPLAINT Blood Pressure : / mmHG Vent. Rate : 091 BPM Atrial Rate : 091 BPM P-R Int : 162 ms QRS Dur : 084 ms QT Int : 322 ms P-R-T Axes : 080 -68 033 degrees QTc Int : 396 ms Normal sinus rhythm Left axis deviation Pulmonary disease pattern Abnormal ECG Confirmed by BETH MOYER, DIANE ([id number]), hoist operator NATHANIEL AGUIRRE ([id number]) on 07/23/2019 9:36:06 AM Referred By: KEVIN Confirmed By:DIANE CAMPOS MD
--- NOTE | 2019-07-20 08:28 | ED.DCSUM_ITS ---
History of Present Illness Chief Complaint: Complaint Narrative: Patient presenting for evaluation due to concerns for a UTI and a syncopal episode. Patient states that over the course of about the last week she has been dealing with dysuria. Patient states that its been associated with burning when she urinates, that has slowly progressed to some low back pain. Patient states she has been developing some general illness now. She got up this morning, and was getting ready for the day and suffered a syncopal episode. She denies that there was any sort of prodrome associated with this. No chest pain palpitations shortness of breath. Patient's states that she passed out and did not have any sort of seizure-like activity, and immediately came to without any sort of postictal episode. She does have a history of having some passing out episodes in the past. She denies fevers. She does endorse some mild nausea associated with this. No history of DVT or PE or any risk factors of such. Review of systems otherwise negative. Past Medical History - Allergies and Home Meds Allergies/Adverse Reactions: Allergies No Known Allergies Allergy (Verified 07/20/19 08:01) Primary Care Physician: Wilmer Redmond MD [Primary Care Provider] - Past Medical History: None Smoking Status: Former smoker Review of Systems General: Reports: Chills Eyes: Denies: Visual changes - bilaterally, Diplopia ENT: Denies: Rhinorrhea, Sore throat Cardiovascular: Reports: Palpitations, - - Syncope Respiratory: Denies: Dyspnea, Cough, Dyspnea on exertion Gastrointestinal: Denies: Abdominal pain, Nausea, Vomiting, Diarrhea, Melena, Hematochezia Genitourinary: Reports: Dysuria Musculoskeletal: Denies: Back pain, Extremity Pain Skin: Denies: Rash, Wounds Neurological: Denies: Headache, Weakness, Numbness Physical Exam Vital Signs/Narrative: Vital Signs Temp Pulse Resp BP Pulse Ox 07/20/19 07:59 98 F 116 H 16 121/85 H 100 Inital Vital Signs reviewed: Yes General: Well nourished, Well developed, No Acute Distress Head: Normocephalic, Atraumatic Eyes: Perrl, EOMI ENT: Moist mucous membranes, No rhinorrhea Neck: Supple, Nontender Cardiovascular: Regular rhythm, No murmurs, Tachycardia Respiratory: No distress, CTA bilaterally, Chest nontender Abdomen: Soft, Nondistended, Normal bowel sounds, Tender - Suprapubic, - - Minimal CVA tenderness to percussion Back: Nontender, Normal Inspection Extremities: Nontender, No edema Skin: Normal color, No rash Neurological: Alert, Oriented x3, Cranial nerves II-XII grossly intact, Normal Strength, Normal Sensation Psychological: Normal affect, Normal Mood Diagnostic/Tx/Re-eval - EKG Initial EKG Interpretation: - - Sinus rhythm at [address] segments normal T waves. Right axis deviation is noted. No evidence of acute ischemia or a rrhythmia. - Medical Decision Making Patient presented secondary to flank pain and a syncopal episode. Patient was evaluated with an EKG. This showed no signs of acute ischemia or arrhythmia. CBC chemistry troponin and lactic acid were found to be grossly unremarkable. Patient's urinalysis did show significant amount of infection. Patient likely at this point has an element of pyelonephritis. Urine was sent for culture. Patient was given fluids and had improvement of her heart rate. At this point I feel the patient is appropriate for outpatient treatment of pyelonephritis. She is negative per the [place] syncope rules, I do not believe that observation admission is required. Patient will be placed on a course of Bactrim. She was given signs and symptoms which to return. ED Disposition - Plan for ED Patient: Disposition: Home or Assisted Living Diagnosis: Pyelonephritis, Syncope Instructions: PYELONEPHRITIS, Female (Adult) Prescriptions: Smz/Tmp Ds [Bactrim Ds] 1 tab PO BID #28 tab Prescription Printed Referrals: Wilmer Redmond MD [Primary Care Provider] - 3-5 Days
[2019-07-20] MEDS: 0.9% Normal Saline 1,000 ML 1000 ML IV (08:40)
[2019-07-20 08:54] LABS: Color, Urine Yellow (Yellow); Glucose, Dipstick Normal (Normal); Internal QC Validated? YES +Cl - CLEAR BKGD; Ketone-Dipstick Negative (Negative); Leukocyte Esterase-Dipstick 500 /ul (Negative); Nitrite-Dipstick Negative (Negative); Occult Blood-Urine 50 /ul (Negative); Protein-Dipstick 100 mg/dl (Negative); Specific Gravity, Urine 1.015 (1.002-1.030); Urine Bilirubin Dipstick Negative (Negative); Urine Clarity Cloudy (Clear); Urine Urobilinogen Normal (Normal)
[2019-07-20 08:57] LABS: Pregnancy, Urine Negative Negative
[2019-07-20 08:59] LABS: Absolute Neutrophil Count 4.8 X10^3/uL (2.0-7.7); Basophil# 0.01 X10^3/uL; Basophil% 0.2 % (0-1); Eosinophil# 0.02 X10^3/uL; Eosinophils% 0.3 % (0-5); Hematocrit 39.5 % (37-47); Hemoglobin 13.1 g/dL (12.0-15.0); Lymphocyte % 11.4 % (19-41); Mean Corp Hgb Conc 33.2 g/dL (32-36); Mean Corpuscular Hgb 27.5 pg (27.0-32.0); Mean Corpuscular Volume 82.8 fL (81-99); Mean Platelet Vol. 9.4 fl (6.2-12.0); Monocyte# 0.56 X10^3/uL; Monocyte% 9.1 % (0-10); NRBC Flagged by Analyzer 0 % (0-5); Neutrophil # 4.82 X10^3/uL (2.7-7.7); Neutrophil % 78.5 % (47-70); Platelet Count 260 K/mm3 (150-450); RBC Distribution Width CV 14.4 % (11.6-14.6); RBC Distribution Width SD 43.3 fl (35.1-43.9); Red Blood Count 4.77 M/mm3 (4.2-5.4); White Blood Count 6.1 K/mm3 (4.4-11.0)
[2019-07-20 09:00] VITALS: BP 105/66; PULSE 84; RESP 19; TEMP 36.7; O2SAT 100
[2019-07-20 09:01] LABS: White Blood Cells >100 SEEN /hpf (0-5)
[2019-07-20 09:02] LABS: Bacteria 2+ /hpf (None Seen); Mucous, Urine 1+ /hpf (<or=2+); Red Blood Cells-Urine 0-5 SEEN /hpf (0-5); Squamous Epithelial Cells - UA 0-5 SEEN /hpf (5-10)
[2019-07-20 09:16] LABS: Anion Gap 7 (5-15); BUN 11 mg/dL (7-18); BUN/Creat Ratio 12.8 RATIO (10-20); Calcium,Total 8.8 mg/dL (8.5-10.1); Chloride 105 mmol/L (98-107); Creatinine, Serum 0.86 mg/dL (0.55-1.02); EST Glomerular Filtration Rate 89 mL/min (>60); Est Glom Filt Rate - Afr Amer 108 mL/min (>60); Estimated Creatinine Clearance 86.32 ml/min; Glucose 124 mg/dL (74-106); Potassium 3.4 mmol/L (3.5-5.1); Sodium Level 140 mmol/L (136-145)
[2019-07-20 09:33] LABS: Lactic Acid 1.5 mmol/L (0.4-2.0)
== END 2019-07-20 10:45 | disposition home or self-care (01) ==
PROVIDERS: Emergency Provider Emergency Medicine; Family Provider Family Medicine; PCP Family Medicine
DX: N12 Tubulo-interstitial nephritis, not specified as acute or chronic (principal); R55 Syncope and collapse; Z87.891 Personal history of nicotine dependence
CPT/HCPCS: 80048; 81001; 81025; 83605; 84484; 85025; 87077; 87086; 87088; 93005; 96360; 99284; J7030; A4216

== ENCOUNTER → 2021-01-12 08:52 | Outpatient (CLI) | payer BC, MEDICAID, SELFPAY ==
[2020-03-27 08:07] VITALS: BMI 22.1
[2021-01-12 11:20] LABS: hCG Titer Quant., Serum 5637 mIU/mL (1-3)
== END ==
PROVIDERS: PCP Family Medicine; Referring Provider Obstetrics & Gynecology; Visit Provider Obstetrics & Gynecology
DX: N92.6 Irregular menstruation, unspecified (principal)
CPT/HCPCS: 36415; 84702

== ENCOUNTER → 2021-01-14 07:51 | Outpatient (CLI) | payer BC, MEDICAID, SELFPAY ==
[2020-03-27 08:07] VITALS: BMI 22.1
[2021-01-14 08:56] LABS: hCG Titer Quant., Serum 10447 mIU/mL (1-3)
== END ==
PROVIDERS: PCP Family Medicine; Referring Provider Obstetrics & Gynecology; Visit Provider Obstetrics & Gynecology
DX: N92.6 Irregular menstruation, unspecified (principal)
CPT/HCPCS: 36415; 84702

== ENCOUNTER → 2021-02-16 10:09 | Outpatient (CLI) | payer BC, MEDICAID, SELFPAY ==
[2021-02-16 09:27] VITALS: BMI 22.1
[2021-02-16 10:36] LABS: Absolute Lymphocyte Count 1.74 X10^3/uL (0.83-4.51); Absolute Neutrophil Count 4.9 X10^3/uL (2.0-7.7); Basophil# 0.05 X10^3/uL; Basophil% 0.7 % (0-1); Eosinophil# 0.05 X10^3/uL; Eosinophils% 0.7 % (0-5); Hematocrit 36.5 % (37-47); Hemoglobin 12.7 g/dL (12.0-15.0); Lymphocyte # 1.74 X10^3/ul (0.83-4.51); Mean Corp Hgb Conc 34.8 g/dL (32-36); Mean Corpuscular Hgb 29.7 pg (27.0-32.0); Mean Corpuscular Volume 85.3 fL (81-99); Mean Platelet Vol. 9.1 fl (6.2-12.0); Monocyte# 0.47 X10^3/uL; Monocyte% 6.5 % (0-10); NRBC Flagged by Analyzer 0 % (0-5); Neutrophil # 4.88 X10^3/uL (2.7-7.7); Neutrophil % 67.4 % (47-70); Platelet Count 334 K/mm3 (150-450); RBC Distribution Width CV 11.6 % (11.6-14.6); RBC Distribution Width SD 35.6 fl (35.1-43.9); Red Blood Count 4.28 M/mm3 (4.2-5.4); White Blood Count 7.2 K/mm3 (4.4-11.0)
[2021-02-16 11:29] LABS: HIV - WCH Non-Reactive (Nonreactive); Hepatitis B Surface Antigen Non-Reactive (Nonreactive); Hepatitis C Antibody Non-Reactive (Nonreactive); Rubella IgG Reactive (Nonreactive); Syphilis Antibodies Non-reactive
[2021-02-16 11:32] LABS: NATERA MAILED SPECIMEN
[2021-02-16 13:50] LABS: Amphetamine Urine VISTA NEGATIVE (<1000 ng/mL); Barbiturate Urine VISTA NEGATIVE (< 200 ng/mL); Benzodiazepine Urine VISTA NEGATIVE (< 200 ng/mL); Cocaine Urine VISTA NEGATIVE (< 300 ng/mL); Ecstacy Urine VISTA NEGATIVE (< 500 ng/mL); Methadone Urine VISTA NEGATIVE (< 300 ng/mL); PCP Urine VISTA NEGATIVE (< 25 ng/mL); THC Urine VISTA NEGATIVE (< 50 ng/mL); Vista UDS pH Range 7
[2021-02-18 04:38] LABS: Chlamydia By Nucleic Acid AMP Negative (Negative)
[2021-02-18 11:49] LABS: Gonococcus By Nucleic Acid AMP Negative (Negative)
[2021-02-18 18:32] LABS: HPV Reflexed? NOT INDICATED
== END ==
PROVIDERS: PCP Family Medicine; Referring Provider Obstetrics & Gynecology; Visit Provider Obstetrics & Gynecology
DX: Z34.90 Encounter for supervision of normal pregnancy, unspecified, unspecified trimester (principal)
CPT/HCPCS: 36415; 80307; 85025; 86703; 86762; 86780; 86803; 86850; 86900; 86901; 87086; 87340; 87491; 87591; 88175; G0145

== ENCOUNTER → 2021-05-05 15:57 | Outpatient (CLI) | payer BC, MEDICAID, SELFPAY ==
--- NOTE | 2021-05-05 16:05 | US_ITS ---
STUDY: SECOND AND THIRD TRIMESTER OBSTETRICAL ULTRASOUND REASON FOR EXAM: Female, 20 years old anatomy LMP: Unknown. TECHNIQUE: Transabdominal and Transvaginal TECHNICAL QUALITY: Adequate. PRIOR ULTRASOUND: None. FINDINGS: There is a single intrauterine fetus. The fetus is in a variable presentation. There is demonstrated cardiac activity with a heart rate of 144 bpm. There is a normal amniotic fluid volume. The largest amniotic fluid pocket measures 6.8 cm. The The placenta is anterior with a marginal previa, placenta terminating approximately 3 mm away from the os. There are Grade 0 placental changes. The cervix measures 4.75 cm in length. The cervix is closed. The adnexal regions are not visualized. BIOMETRY: BPD: 5.24 cm: 21 weeks, 6 days HC: 19.59 cm: 21 weeks, 5 days AC: 17.54 cm: 22 weeks, 3 days FL: 3.46 cm: 20 weeks, 6 days CI: 76.93 FL/BPD: 66.09 FL/HC: 17.68 FL/AC: 19.75 HC/AC: 1.12 age by current US: 21 weeks, 3 days. SILVANA by current US: 09/12/2021. Estimated weight: 455 grams, +/- 68 grams, 11.2 %. age by prior US: No prior ultrasound. Age by LMP: 22 weeks, 5 days. SILVANA by LMP: 09/03/2021. ANATOMY: Gender: Male Cranium: Normal lateral ventricles. Normal choroid plexus. Normal cerebellum. Normal cisterna magna. Normal face, nose and lips. Chest: Normal 4-chamber heart. Abdomen/Pelvis: Normal diaphragm. Normal stomach. Normal abdominal wall. Normal cord insertion. Normal 3 vessel cord. Normal kidneys. Normal bladder. Spine: Normal cervical spine. Normal thoracic spine. Normal lumbar spine. Normal sacrum. Extremities: Normal bilateral upper extremities. Normal bilateral lower extremities. US/OB Anatomy Scan IMPRESSION: Single intrauterine with ultrasound age of 21 weeks and 3 days and estimated date of delivery of 09/12/2021. Variable presentation. Marginal placenta previa, placental terminating 3.2 mm away from the internal os. Normal amniotic fluid. Normal cardiac activity. No distinct anomaly. Electronically Signed: Loida Barnes MD at 0:50 EDT , Service support ,
== END ==
PROVIDERS: PCP Family Medicine; Referring Provider Obstetrics & Gynecology; Visit Provider Obstetrics & Gynecology
DX: Z34.80 Encounter for supervision of other normal pregnancy, unspecified trimester (principal)
CPT/HCPCS: 76805; 76817

== ENCOUNTER → 2021-06-11 16:33 | Outpatient (CLI) | payer BC, MEDICAID, SELFPAY ==
--- NOTE | 2021-06-11 16:34 | US_ITS ---
STUDY: SECOND AND THIRD TRIMESTER OBSTETRICAL ULTRASOUND - LIMITED REASON FOR EXAM: Female, 21 years old marginal placenta previa follow-up PRIOR ULTRASOUND: May 15, 2021 TECHNIQUE: Transabdominal TECHNICAL QUALITY: Adequate. FINDINGS: There is a single intrauterine fetus. The fetus is in a breech and variable presentation. There is demonstrated cardiac activity with a heart rate of 140 bpm. There is a normal amniotic fluid volume. The largest amniotic fluid pocket measures 6.84 cm. The amniotic fluid index (MIRIAM) is 15.24 cm. The placenta is anterior in location and is not low lying, terminating 5.07 cm away from the internal cervical os. There are Grade 0 placental changes. The cervix measures 4.25 cm in length. BIOMETRY: Not requested age by current US: 28 weeks, 0 days. SILVANA by current US: September 03, 2021. US/OB Limited (No Biometrics) IMPRESSION: 1. Fetus at 28 weeks and 0 days. Electronically Signed: Rito Plummer MD at 22:00 EDT , Service support ,
== END ==
PROVIDERS: PCP Family Medicine; Referring Provider Obstetrics & Gynecology; Visit Provider Obstetrics & Gynecology
DX: O44.20 Partial placenta previa NOS or without hemorrhage, unspecified trimester (principal); Z3A.00 Weeks of gestation of pregnancy not specified
CPT/HCPCS: 76815; 76817

== ENCOUNTER → 2021-06-12 13:08 | Outpatient (CLI) | payer BC, MEDICAID, SELFPAY ==
[2021-06-12 14:05] LABS: Absolute Neutrophil Count 7.1 X10^3/uL (2.0-7.7); Basophil# 0.03 X10^3/uL; Basophil% 0.3 % (0-1); Eosinophil# 0.03 X10^3/uL; Eosinophils% 0.3 % (0-5); Hematocrit 34.8 % (37-47); Hemoglobin 11.4 g/dL (12.0-15.0); Lymphocyte % 17.3 % (19-41); Mean Corp Hgb Conc 32.8 g/dL (32-36); Mean Corpuscular Hgb 28.2 pg (27.0-32.0); Mean Corpuscular Volume 86.1 fL (81-99); Monocyte# 0.49 X10^3/uL; Monocyte% 5.3 % (0-10); NRBC Flagged by Analyzer 0 % (0-5); Neutrophil # 7.05 X10^3/uL (2.7-7.7); Platelet Count 262 K/mm3 (150-450); RBC Distribution Width CV 12.1 % (11.6-14.6); RBC Distribution Width SD 38.4 fl (35.1-43.9); Red Blood Count 4.04 M/mm3 (4.2-5.4); White Blood Count 9.3 K/mm3 (4.4-11.0)
[2021-06-12 14:22] LABS: Glucose Challenge Gest 1H 50g 156 mg/dL (70-140)
== END ==
PROVIDERS: PCP Family Medicine; Referring Provider Obstetrics & Gynecology; Visit Provider Obstetrics & Gynecology
DX: Z34.80 Encounter for supervision of other normal pregnancy, unspecified trimester (principal)
CPT/HCPCS: 36415; 82950; 85025

== ENCOUNTER → 2021-06-17 06:53 | Outpatient (CLI) | payer BC, MEDICAID, SELFPAY ==
[2021-06-17 08:06] LABS: Glucose GTT-Gestation. Fasting 77 mg/dL (<105)
[2021-06-17 09:47] LABS: Glucose GTT-Gestational 1 Hr 131 mg/dL (<190)
[2021-06-17 09:48] LABS: Glucose GTT-Gestational 2 Hr 127 mg/dL (<165)
[2021-06-17 10:33] LABS: Glucose GTT-Gestational 3 Hr 73 L (<145)
== END ==
PROVIDERS: PCP Family Medicine; Referring Provider Obstetrics & Gynecology; Visit Provider Obstetrics & Gynecology
DX: Z13.1 Encounter for screening for diabetes mellitus (principal)
CPT/HCPCS: 36415; 82951; 82952

== ENCOUNTER → 2021-08-06 18:17 | Outpatient (CLI) | payer BC, MEDICAID, SELFPAY | PROVIDERS: PCP Family Medicine; Visit Provider Obstetrics & Gynecology | DX: Z34.80 Encounter for supervision of other normal pregnancy, unspecified trimester (principal) | CPT/HCPCS: 87081 ==

== ENCOUNTER 2021-08-26 07:40 | Inpatient (IN) | payer BC, MEDICAID, SELFPAY ==
[2021-08-26] VITALS (29 sets, daily range): BP systolic 95–202; BP diastolic 56–133; PULSE 75–107; RESP 18; TEMP 36.2–37.3; O2SAT 88–100; BMI 28.3
[2021-08-26 07:49] LABS: Absolute Lymphocyte Count 1.36 X10^3/uL (0.83-4.51); Absolute Neutrophil Count 7.8 X10^3/uL (2.0-7.7); Basophil# 0.03 X10^3/uL; Basophil% 0.3 % (0-1); Eosinophil# 0.04 X10^3/uL; Eosinophils% 0.4 % (0-5); Hematocrit 32.2 % (37-47); Lymphocyte # 1.36 X10^3/ul (0.83-4.51); Lymphocyte % 13.4 % (19-41); Mean Corp Hgb Conc 31.1 g/dL (32-36); Mean Corpuscular Hgb 24.3 pg (27.0-32.0); Mean Corpuscular Volume 78.3 fL (81-99); Mean Platelet Vol. 10.1 fl (6.2-12.0); Monocyte% 7.9 % (0-10); NRBC Flagged by Analyzer 0 % (0-5); Neutrophil # 7.83 X10^3/uL (2.7-7.7); Neutrophil % 77.4 % (47-70); Platelet Count 238 K/mm3 (150-450); RBC Distribution Width SD 39.8 fl (35.1-43.9); Red Blood Count 4.11 M/mm3 (4.2-5.4); White Blood Count 10.1 K/mm3 (4.4-11.0)
[2021-08-26] MEDS: Lactated Ringers 1,000 ML 999 ML IV (07:49)
[2021-08-26] MEDS: Lactated Ringers 500 ML 200 ML IV (08:30)
[2021-08-26] MEDS: fentaNYL-bupivacaine (epidural) 100 ML BAG EPIDURAL ×2 (09:35→12:29)
[2021-08-26] MEDS: Lactated Ringers 1,000 ML 200 ML IV ×2 (11:00→12:32)
--- NOTE | 2021-08-26 11:55 | HP.PCM.OB_ITS ---
HPI - General General Date of Admission: 08/26/21 HPI Narrative RON PARK, is a 21 F who presents in active labor with regular contractions made cervical change from 4 to 6 cm. Maternal Data Information SILVANA Calculator Estimated Delivery Date Method Current WG Current Estimate 09/03/21 LMP (Uncertain) 38w 6d PFSH PFSH Medical History Abnormal glucose affecting Marginal placenta previa Home Medications prenat.vits,sanya,[id number]-[id number]-[id number] 1 tab PO DAILY 01/28/21 [History Last Taken Unknown] Allergy/AdvReac Type Severity Reaction Status Date / Time No Known Allergies Allergy Verified 08/26/21 06:48 Family History Grandmother Breast cancer Surgical History no surgical history Social History adopted: No household members: significant other number of children: 1 current occupational status: employed current occupation: [employer] pets and animals: No Smoking Status: Never smoker alcohol intake: never substance use type: does not use caffeine: Yes what type of physical activity do you participate in: walking seatbelt use: always do you feel safe at home: Yes additional social history: [place] History 2 Elective abortions Hx Para 1 Spontaneous abortions Hx # Term Pregnancies Ectopic pregnancies Hx # Pregnancies Multiple births # of living children Past Pregnancies Del. Date Name GA/Weeks Outcome Route Bth Weight Gen Labor Lgth [facility] FOB 02/05/19 Cherry 40 live - full term Female epid ural [facility] Marcanthony Delivery Date: 02/05/19 Manual removal of placenta. Increased blood loss-no transfusion. Vane Perez Visit Details Expected Delivery Route/Plan Labor Preferences- CB/BF classes: [] labor support person: [] labor intervention preferences: [] pain management options preferred: [] cut cord/dad catch: [] : [] PP control planned: [] discussed possible routes of delivery and associated risks: [] special requests: [] Plans covid status: non immune, counseled regarding risk of covid in vs vaccination and declined vaccination flu vaccine: declined tdap vaccine: given rhogam: neg LARC form signed: declined movement and labor precautions reviewed. Problem list reviewed and updated with the most current plan of care details and appropriate orders placed. Relevant counseling for the gestational age provided. Continue routine care and follow up unless otherwise noted in visit notes/problem list details OB Flowsheet Initial Weight: 125 lb Date -?-?-?-?-?-?-?-?-?-?-?-?- EGA Weight BP Urine Prot -?-?-?-?-?-?-?-?-?-?-?-?- Glucose FHR FuHt Pres Dilation -?-?-?-?-?-?-?-?-?-?-?-?- Effaced St Visit Note 02/16/21 -?-?-?-?-?-?-?-?-?-?-?-?- 11w 4d 127 lb (+2 lb) 112/80 -?-?-?-?-?-?-?-?-?-?-?-?- 160 -?-?-?-?-?-?-?-?-?-?-?-?- SM- CRL cons wit h LMP 03/20/21 -?-?-?-?-?-?-?-?-?-?-?-?- 16w 1d 128 lb (+3 lb) 116/70 Negative -?-?-?-?-?-?-?-?-?-?-?-?- Negative 150 -?-?-?--?-?-?-?-?-?-?-?-?- SM- no vb lof cr maping 04/17/21 -?-?-?-?-?-?-?-?-?-?-?-?- 20w 1d 132 lb (+7 lb) 120/80 -?-?-?-?-?-?-?-?-?-?-?-?- 145 -?-?-?-?-?-?-?-?-?-?-?-?- SM no vb lof goo d fm 05/15/21 -?-?-?-?-?-?-?-?-?-?-?-?- 24w 1d 141 lb 6 oz (+16 lb 6 oz) 110/70 Negative -?-?-?-?-?-?-?-?-?-?-?-?- Negative 140 24 -?-?-?-?-?-?-?-?-?-?-?-?- GP - no LOF, VB, DFM, ctx. Discussed marginal previa. GCT next visit. 06/12/21 -?-?-?-?-?-?-?-?-?-?-?-?- 28w 1d 146 lb 4 oz (+21 lb 4 oz) 110/70 Negative -?-?-?-?-?-?-?-?-?-?-?-?- Negative 140 28 -?-?-?-?-?-?-?-?-?-?-?-?- SM- no vb lof go od fm no regular ctx previa resolved 06/26/21 -?-?-?-?-?-?-?-?-?-?-?-?- 30w 1d 149 lb 6 oz (+24 lb 6 oz) 104/70 Negative -?-?-?-?-?-?-?-?-?-?-?-?- Negative 140 30 -?-?-?-?-?-?-?-?-?-?-?-?- SM- no vb lof go od fm no regular ctx 07/24/21 -?-?-?-?-?-?-?-?-?-?-?-?- 34w 1d 138 lb (+13 lb) 116/72 Negative -?-?-?-?-?-?-?-?-?-?-?-?- Negative 130 34 -?-?-?-?-?-?-?-?-?-?-?-?- Sm- no vb lof go od fm no regular ctx 08/06/21 -?-?-?-?-?-?-?-?-?-?-?-?- 36w 0d 157 lb (+32 lb) 110/72 -?-?-?-?-?-?-?-?-?-?-?-?- 130 36 Cephalic 1 -?-?-?-?-?-?-?-?-?-?-?-?- SM- no vb lof go od fm no regular ctx gbs 08/12/21 -?-?-?-?-?-?--?-?-?-?-?-?- 36w 6d 159 lb (+34 lb) 120/82 Negative -?-?-?-?-?-?-?-?-?-?-?-?- Negative 144 37 Cephalic 2 -?-?-?-?-?-?-?-?-?-?-?-?- 70 -2 JV-no lof, vaginal bleeding, or dec. fm. JV-no lof, vaginal bleeding, or dec. fm. GBS neg 08/19/21 -?-?-?-?-?-?-?-?-?-?-?-?- 37w 6d 161 lb (+36 lb) 120/82 Negative -?-?-?-?-?-?-?-?-?-?-?-?- Negative 137 37 Cephalic 2 -?-?-?-?-?-?-?-?-?-?-?-?- 80 -2 JV- lost m ucous plug, no vaginal bleeding, or leaking fluid + fm. 08/25/21 -?-?-?-?-?-?-?-?-?-?-?-?- 38w 5d 161 lb 8 oz (+36 lb 8 oz) 122/88 Negative -?-?-?-?-?-?-?--?-?-?-?-?- Negative 135 38 Cephalic 3 -?-?-?-?-?-?-?-?-?-?-?-?- 80 -1 SM- no vb lof good fm no regular ctx 08/26/21 -?-?-?-?-?-?-?-?-?-?-?-?- 38w 6d 160 lb (+35 lb) 116/72 114/60 120/69 116/77 116/69 95/68 97/56 101/57 -?-?-?-?-?-?-?-?-?-?-?-?- -?-?-?-?-?-?-?-?-?-?-?-?- NST FHR Rate Baby A Baseline: 120 Variability:: Moderate Accelerations:: 15 x 15 Decelerations:: None NST Reactive:: Yes FHR Category:: Category I Uterine Activity:: q3-5 ROS Constitutional Constitutional: Reports systems reviewed and no addt'l complaints, except as documented ENT HEENT: Reports systems reviewed and no addt'l complaints, except as documented Cardiovascular Cardiovascular: Reports systems reviewed and no addt'l complaints, except as documented Respiratory/Chest Respiratory/Chest: Reports systems reviewed and no addt'l complaints, except as documented Gastrointestinal Gastrointestinal: Reports systems reviewed and no addt'l complaints, except as documented and nausea; Denies abdominal pain Genitourinary Genitourinary: Reports systems reviewed and no addt'l complaints, except as documented, contractions Details: present and frequency (regular ) and movement Details: present Musculoskeletal Musculoskeletal: Reports systems reviewed and no addt'l complaints, except as documented Integumentary Integumentary: Reports as per HPI Neurologic Neurologic: Reports systems reviewed and no addt'l complaints, except as documented Endocrine Endocrinology: Reports systems reviewed and no addt'l complaints, except as documented Vital Signs Vital Signs Vital Signs: 08/26/21 06:44 08/26/21 06:45 08/26/21 06:49 Temperature 97.2 F L Temperature Source Temporal Pulse Rate 96 103 H Blood Pressure 116/72 BP Systolic 116 BP Diastolic 72 Pulse Ox 97 96 08/26/21 07:16 08/26/21 08:25 08/26/21 08:27 Temperature Temperature Source Pulse Rate 85 84 85 Blood Pressure 114/60 120/69 BP Systolic 114 120 BP Diastolic 60 69 Pulse Ox 100 88 08/26/21 08:30 08/26/21 08:31 08/26/21 08:35 Temperature Temperature Source Pulse Rate 81 Blood Pressure 116/77 BP Systolic 116 BP Diastolic 77 Pulse Ox 99 99 08/26/21 08:36 08/26/21 08:40 08/26/21 08:50 Temperature 97.5 F L Temperature Source Temporal Pulse Rate 76 87 88 Blood Pressure 116/69 95/68 BP Systolic 116 95 BP Diastolic 69 68 Pulse Ox 08/26/21 09:17 08/26/21 10:30 Temperature Temperature Source Pulse Rate 77 78 Blood Pressure 97/56 L 101/57 L BP Systolic 97 101 BP Diastolic 56 57 Pulse Ox Weight Weight: 160 lb Body Mass Index (BMI) 28.3 Physical Exam Const alert, oriented x3 and healthy appearing Constitutional Narrative: uncomfortable with contractions HEENT normocephalic and moist oral mucous membranes Head and Scalp: atraumatic Neck full ROM, no lymphadenopathy, supple and thyroid normal General: trachea midline Thyroid: thyroid normal Lymph Lymphatic: no lymphadenopathy noted Chest inspection of chest normal Resp normal respiratory effort Cardio regular rate GI normal to inspection, nondistended, normoactive bowel sounds, soft to palpation and non-tender Inspection: gravid external exam normal Bimanual Exam - Vag & Uterus: uterus non-tender Manual OB Exam: estimated gestational size appropriate, presentation cephalic, dilated, effaced and station Extremity normal to inspection General Extremity: Negative for edema Skin no rashes or lesions noted Neuro deep tendon reflexes 2+ bilaterally Motor Exam: strength 5/5 throughout and clonus absent Psych mental status grossly normal Labs Labs Labs: Blood Type O POSITIVE Antibody Screen NEGATIVE Hct 32.2 % (37-47) L Hgb 10.0 g/dL (12.0-15.0) L Obstetrics US Syphilis Total Ab Non-reactive VZV IgG Antibody 380 index (Immune >165) Rubella IgG Antibody Reactive (Nonreactive) Hep Bs Antigen Non-Reactive (Nonreactive) Neisseria gonorrhoeae DNA (YI) Negative (Negative) HIV 1&2 Antibody Non-Reactive (Nonreactive) C.trachomatis DNA (PCR) Negative (Negative) Glucose 1 Hr 50 gm 156 mg/dL (70-140) H Rhogam given: No Miscellaneous Test Assessment & Plan (1) COVID-19 virus RNA test result positive at limit of detection: COMMENT: contact precautions and teaching for discharge to home (2) Active labor at term: COMMENT: exp management, AROM clear fluid, epidural (3) Abnormal glucose affecting : COMMENT: 3 hr GTT- NL (4) : QUALIFIERS: Weeks of gestation: 38 weeks Qualified Code(s): Z3A.38 - 38 weeks gestation of COMMENT: low risk male genetic and neg 14/14 carrier testing. afp declined. anatomy nl, GBS neg (5) Supervision of other normal : COMMENT: PRR SILVANA 09/03/21 boy PC Bernardo Clay
[2021-08-26] MEDS: Oxytocin 30 units/NS 500 ml 30 UNITS/500 ML IV.SOLN IV (12:13)
--- NOTE | 2021-08-26 13:03 | PLAC_PTH ---
PATIENT: RON PARK LOC: [facility] U#:[id number] AGE/SX: ROOM: WP010 RE08/26/[address]: Dr. Melissa Amado MD : 2000 BED: 1 DIS: 08/27/2021 SPEC #: [id number] RECD: 08/26/21 19:07 STATUS: ALIS MAXIMILIAN #: [id number] KEVIN: 08/26/21 13:[address]: Melissa Amado DEPT: SURGICAL PATHOLOGY RECD BY: Yulisa Todd ENTERED: 08/27/21 12:42 SP TYPE: PLACENTA OTHR DR: Dr. Jamie Marroquin, DO Tissues: Placenta, NOS Procedures: Surgery Specimen Level V HEADER OPERATION: Vaginal delivery PRE-OP DIAGNOSIS: COVID positive patient TISSUE SUBMITTED: Placenta MICROSCOPIC DIAGNOSIS Placenta: Placental disc - third trimester placenta (636 gm). - Focal areas of intraparenchymal hemorrhage and infarction (largest measuring 1.5 cm in greatest dimension. Membranes - no pathologic diagnosis. Umbilical cord - three blood vessels and no pathologic diagnosis. SJ:akira 09/01/2021 MICROSCOPIC DESCRIPTION Slides are reviewed. GROSS DESCRIPTION SPECIMEN: PLACENTA / CLINICAL INFORMATION: A. Weight: 3.455 kg B. Gestational Age: 38 weeks C. Sex: Male PLACENTAL WEIGHT (POST FIXATION): 636 gm PLACENTAL DIMENSIONS: 21 x 19 x 3.5 cm PLACENTAL SHAPE: Usual ovoid. PLACENTAL WEIGHT FOR GESTATIONAL AGE: Over 99th percentile MEMBRANES - Present A. Insertion: Marginal B. Site of rupture from edge: 5.5 cm from edge of placental disc C. Color of membrane: Schwartz-mata D. Abnormalities: None UMBILICAL CORD - Present A. Color: Schwartz-mata B. Insertion: Marginal C. Length: 34 cm D. Diameter: 1.3 cm E. Number of vessels: Three F. Abnormalities: None PLACENTAL DISC - Present A. Color of surface: Schwartz-mata B. surface abnormalities: None C. Maternal cotyledons: The maternal surface is partly disrupted, however, appears to be complete. D. Attached retro placental clot: No clot E. Cut surface: Dark red and spongy F. Lesions: Sections reveal three schwartz, hemorrhagic lesions, the largest measuring 1.5 cm in greatest dimension. G. Separate clot: Absent SECTIONS SUBMITTED: 1. Membrane roll 2. Cord, maternal end, lesion 3. Cord, end, lesion 4. Placental disc, and maternal surfaces, largest lesion 5. Placental disc, and maternal surfaces 6. Placental disc, and maternal surfaces IZZY:akira 08/31/21 TC:5 CPT: 44719
[2021-08-26] MEDS: Oxytocin 30 units/NS 500 ml 30 UNITS/500 ML IV.SOLN 334 UNITS IV (13:07)
--- NOTE | 2021-08-26 13:09 | OP.PCM_ITS ---
Maternal Data Information SILVANA Calculator Estimated Delivery Date Method Current Current Estimate 09/03/21 LMP (Uncertain) 38w 6d Vaginal Delivery Operative Information Date of Procedure: 08/26/21 Pre-Operative Diagnosis: IAL Post-Operative Diagnosis: same Surgery / Procedure Performed: Spontaneous Vaginal Delivery Type of Anesthesia: Epidural Special Medications: none Estimated Blood Loss: 100 Fluids Replaced: crystalloid Findings Description of Procedure: Patient began pushing and delivered the head in the BREEZY presentation. The head was delivered atraumatically . The anterior and posterior shoulders delivered without complication followed by the rest of the infant and the infant was placed on the maternal abdomen. Delayed cord clamping was employed for approximately 60 seconds. Cord was clamped and cut and gentle traction was applied to the cord and the placenta delivered spontaneously immediately following it was noted to be intact with three-vessel cord. The perineum and vagina were inspected and noted to have no laceration. EBL was 100 cc. Patient and infant tolerated delivery well. Presentation: BREEZY Amniotic Membrane Rupture Type: Artificial Amniotic Fluid Description: Clear Placental Delivery Description: Spontaneous Placenta Disposition: [facility] Cord Vessel Description: 3 Vessels Cord Entanglement: None Delayed Cord Clamping: Yes Post Vaginal Delivery Medications Given After Delivery: IV Pitocin Episiotomy Description: None Laceration: None Complication Complications: None Procedures Urinary/Genital [id number]: [id number] Vaginal Delivery [facility]
--- NOTE | 2021-08-26 13:10 | PCM.DC ---
Discharge Instructions Diet Discharge Diet: No restrictions Activity Discharge Activity: Return to Normal Activity, May Not Drive (while taking narcotic pain medications.) and May Shower May resume sexual activity in: 4-6 weeks Dressing / Incision Call your doctor if your incision/area has: Continuous Slow Oozing, Sudden Increased Bleeding, Increased Pain/ Swelling, Increased Redness and Foul Smelling Discharge Follow Up Care Please Follow Up With: Melissa Amado MD When: Call [phone] to make an appointment with your doctor in 6 weeks. If you had elevated blood pressure or 4th degree laceration, you will need to be seen in 2 weeks. Test Results: Test results from this visit will be discussed in further detail at your follow-up appointment, if applicable. Discharge Plan Admission Admit Date/Time: 08/26/21 07:40 Primary Reason for Your Visit: delivery Attending Provider: Melissa Amado Primary Care Provider: Jamie Marroquin Discharge Orders/Prescriptions Prescriptions: No Action prenat.vits,sanya,[id number]-[id number] Tablet 1 tab PO DAILY RF: 0 Referrals / Follow Up: Jamie Marroquin DO [Primary Care Provider] - Disposition Disposition (needs filled in before D/C Order can be placed): Home, Self Care
[2021-08-26] MEDS: 0.9% Saline Lock 10 ML Syringe IV (14:41)
[2021-08-26] MEDS: Naproxen 500 MG Tablet PO (16:45)
[2021-08-27 00:32] VITALS: BP 123/57; PULSE 90; RESP 16; TEMP 36.6
[2021-08-27 04:53] VITALS: BP 100/32; PULSE 74; RESP 16
[2021-08-27] MEDS: Acetaminophen 500 MG Tablet 1000 MG PO (07:45)
[2021-08-27 07:48] VITALS: BP 110/69; PULSE 82; RESP 16; TEMP 36.7; O2SAT 98
--- NOTE | 2021-08-27 08:01 | PCM.PN.OB ---
Subjective Subjective Patient doing well without complaints. Tolerating PO. Ambulating and voiding without difficulty. feeding well. Denies chest pain, shortness of breath, calf pain/swelling, fevers, chills, lightheadedness. Objective Data Objective Data Vital Signs: Vital Signs Temp Pulse Resp BP Pulse Ox 98.1 F 82 16 110/69 98 08/27/21 07:48 08/27/21 07:48 08/27/21 07:48 08/27/21 07:48 08/27/21 07:48 Oxygen Delivery Method Room Air Weight: 160 lb Body Mass Index (BMI) 28.3 Intake & Output: Intake and Output for Last 24 Hours 08/25/21 08/26/21 08/27/21 23:59 23:59 23:59 Intake Total 2952.34 / 2952.34 Balance 2952.34 / 2952.34 Lab / Micro Data Result Diagrams: 08/26/21 07:30 Labs: Laboratory Results - last 24 hr 08/26/21 07:30: Blood Type O POSITIVE, Antibody Screen NEGATIVE 08/26/21 10:49: COVID-19 (YI) Detected Micro: Microbiology 08/26/21 10:00 Nasal Secretion SARS-CoV-2 Antigen (Rapid) - Final SARS-CoV-2 (COVID 19) ROS Constitutional Constitutional: Reports systems reviewed and no addt'l complaints, except as documented Cardiovascular Cardiovascular: Reports systems reviewed and no addt'l complaints, except as documented Respiratory/Chest Respiratory/Chest: Reports systems reviewed and no addt'l complaints, except as documented Gastrointestinal Gastrointestinal: Reports systems reviewed and no addt'l complaints, except as documented Physical Exam Const alert, oriented x3 and no apparent distress HEENT Head and Scalp: atraumatic Resp normal respiratory effort GI soft to palpation and non-tender Bimanual Exam - Vag & Uterus: uterus non-tender Uterus Palpation: uterus fundus firm (below Umbilicus) Assessment & Plan (1) Vaginal delivery: COMMENT: SM 38 IAL boy covid pos at delivery PLAN: s/p PPD # 1 1. routine post delivery care 2. breast feeding- support given 3. rh positive 4. rubella immune covid pos- contact precautions
[2021-08-27 12:07] VITALS: BP 111/66; PULSE 104; RESP 16; TEMP 35.9; O2SAT 96
[2021-09-02 10:49] LABS: Pathology Specimen OB SEE PATHOLOGY REPORT
== END 2021-08-27 16:46 | disposition home or self-care (01) | DRG 805 ==
LOC: WPOUT 07:46 → WP 07:46
PROVIDERS: Admitting Provider Obstetrics & Gynecology; PCP Family Medicine; Referring Provider Obstetrics & Gynecology; Visit Provider Obstetrics & Gynecology
DX: O98.52 Other viral diseases complicating childbirth (principal); U07.1 COVID-19; Z37.0 Single live birth; Z3A.38 38 weeks gestation of pregnancy
CPT/HCPCS: 59025; 59050; 85025; 86850; 86900; 86901; 87426; 87635; 88307; J7120; U0005; A4216; U0003

== ENCOUNTER → 2022-05-05 | Outpatient (CLI) | payer BC, MEDICAID, SELFPAY ==
--- NOTE | 2022-05-05 18:23 | US_ITS ---
STUDY: ULTRASOUND OF THE FEMALE PELVIS - COMPLETE REASON FOR EXAM: Female, 21 years old. IUD PLACEMENT LMP: 03/29/2022. TECHNIQUE: Transabdominal and Transvaginal TECHNICAL QUALITY: Adequate. COMPARISON: None. FINDINGS: The uterus is anteverted and is in a midline position. The uterus measures 6.8 cm x 4.7 cm x 3.4 cm. There is a Nabothian cyst of the cervix. The endometrium measures 2 mm in thickness, and is hyperechoic. There is no demonstrated endometrial mass. There is no demonstrated myometrial mass. I.U.D. - The patient does have an I.U.D. The right ovary is visualized. The right ovary measures 4.6 cm x 4.1 cm x 3 cm. There is a 3.5 cm x 3 cm x 2.5 cm cyst. There is no visualized right adnexal mass or complex lesion. There is normal arterial and normal venous vascularity. The left ovary is visualized. The left ovary measures 3.1 cm x 2.7 cm x 1.5 cm. There is no left ovarian cyst or ovarian mass. There is a 1.3 cm x 1.6 cm x 1 cm dominant follicle. There is normal arterial and normal venous vascularity. There is minimal fluid in the cul-de-sac. The pre void volume of the bladder was 84.2 ml. US/Pelvic (Non ) IMPRESSION: 3.5 cm x 3 cm x 2.5 cm right ovarian cyst. IUD is seen within the endometrium. Electronically Signed: Shane Thakkar MD at 13:28 EDT ,
--- NOTE | 2022-05-05 18:24 | US_ITS ---
STUDY: ULTRASOUND OF THE FEMALE PELVIS - COMPLETE REASON FOR EXAM: Female, 21 years old. IUD PLACEMENT LMP: 03/29/2022. TECHNIQUE: Transabdominal and Transvaginal TECHNICAL QUALITY: Adequate. COMPARISON: None. FINDINGS: The uterus is anteverted and is in a midline position. The uterus measures 6.8 cm x 4.7 cm x 3.4 cm. There is a Nabothian cyst of the cervix. The endometrium measures 2 mm in thickness, and is hyperechoic. There is no demonstrated endometrial mass. There is no demonstrated myometrial mass. I.U.D. - The patient does have an I.U.D. The right ovary is visualized. The right ovary measures 4.6 cm x 4.1 cm x 3 cm. There is a 3.5 cm x 3 cm x 2.5 cm cyst. There is no visualized right adnexal mass or complex lesion. There is normal arterial and normal venous vascularity. The left ovary is visualized. The left ovary measures 3.1 cm x 2.7 cm x 1.5 cm. There is no left ovarian cyst or ovarian mass. There is a 1.3 cm x 1.6 cm x 1 cm dominant follicle. There is normal arterial and normal venous vascularity. There is minimal fluid in the cul-de-sac. The pre void volume of the bladder was 84.2 ml. US/Transvaginal Non- IMPRESSION: 3.5 cm x 3 cm x 2.5 cm right ovarian cyst. IUD is seen within the endometrium. Electronically Signed: Shane hTakkar MD at 13:28 EDT ,
== END | disposition home or self-care (01) ==
PROVIDERS: PCP Family Medicine; Visit Provider Nurse Practitioner Women's Health
DX: R30.0 Dysuria (principal)
CPT/HCPCS: 76830; 76856; 87086; 87088

== ENCOUNTER → 2024-10-15 | Outpatient (CLI) | payer OTHER, SELFPAY ==
[2024-10-19 08:36] LABS: HPV Reflexed? NOT INDICATED
== END | disposition home or self-care (01) ==
PROVIDERS: PCP Nurse Practitioner Women's Health; Referring Provider Nurse Practitioner Women's Health; Visit Provider Nurse Practitioner Women's Health
DX: Z12.4 Encounter for screening for malignant neoplasm of cervix (principal)
CPT/HCPCS: 88175; G0145